=== PATIENT | male | born 1975 | race Caucasian/White ===

== ENCOUNTER → 2024-02-09 14:47 | Outpatient (REF) | payer OTHER, SELFPAY | LOC: RCS 14:47 | PROVIDERS: ATTENDING PHYSICIAN Internal Medicine Cardiovascular Disease; FAMILY PHYSICIAN Family Medicine | DX: I10 Essential (primary) hypertension (principal); R93.1 Abnormal findings on diagnostic imaging of heart and coronary circulation; E78.2 Mixed hyperlipidemia | CPT/HCPCS: 93017 ==

== ENCOUNTER → 2024-10-04 06:54 | Outpatient (REF) | payer OTHER, SELFPAY | LOC: EMG 06:54 | PROVIDERS: ATTENDING PHYSICIAN Orthopaedic Surgery Hand Surgery; FAMILY PHYSICIAN Family Medicine | DX: M25.521 Pain in right elbow (principal); R20.0 Anesthesia of skin | CPT/HCPCS: 95886; 95910 ==

== ENCOUNTER 2024-11-07 10:15 | Emergency (ER) | payer OTHER, SELFPAY ==
[2024-11-07 10:31] VITALS: BP 137/88
--- NOTE | 2024-11-07 11:23 | ED.GENMED ---
History of Present Illness
General
Chief Complaint: Fall
Source: patient
Time Seen by Provider: 11/07/24 10:45
History of Present Illness
History of Present Illness:
49-year-old male with past medical history of hyperlipidemia presenting to the emergency department for evaluation after he fell off his sofa last night landing face first onto the ground noting epistaxis, abrasion to the nasal bridge and some mild
bruising around the nasal bone this morning. Patient states that he still feels a small taste of blood in the back of his throat. Denies any reported loss of consciousness, vomiting, visual changes. Reports this injury occurred around 11 PM to
midnight last night. Patient does endorse alcohol use last night. Denies any use of anticoagulants. Tetanus is up-to-date. No other injury sustained.
Past History
Past History
ED Past Medical History: HTN and Hypercholesterolemia
ED Past Surgical History: Tonsilectomy
Social History
Tobacco: Non-smoker
Alcohol: Occasional
Drug: None
Personal:
Living: with family
Employment: Employed
Review of Systems
Review of Systems
All Other Systems: ROS reviewed and negative except as documented in HPI and ROS
Phy Exam
Physical Exam
Physical Exam:
GENERAL: Alert , in no apparent distress
EYE: clear conjunctiva b/l
HEAD: no scalp trauma
ENT: Nasal abrasion/contusion to the nasal bridge. Mild surrounding ecchymosis. No active bleeding. There is dried blood in both naris but no septal hematoma. No blood within the posterior oropharynx. o/p clr, mmm. No dental fractures.
Tolerating secretions. TMs clear bilateral
NEUROLOGICAL: Alert and oriented
SKIN: Warm and dry, skin intact.
MUSCULOSKELETAL: No edema, well perfused.
PSYCH: Normal and appropriate interaction.
Scores
Heart Failure Risk
Heart Failure Risk Score: Not Applicable
Heart Score for Chest Pain Patients
STEMI patient?: Not applicable
Withdrawal Assessment of Alcohol
Withdrawal Assessment Completed?: Not applicable
Course
Vital Signs
Initial and Last Documented VS:
Initial Vital Signs
Temp Pulse Resp BP Pulse Ox
98.0 F 98 16 137/88 98
11/07/24 10:31 11/07/24 10:31 11/07/24 10:31 11/07/24 10:31 11/07/24 10:31
Last Documented Vital Signs
Temp Pulse Resp BP Pulse Ox
98.0 F 98 16 137/88 98
11/07/24 10:31 11/07/24 10:31 11/07/24 10:31 11/07/24 10:31 11/07/24 10:31
MDM/Problems Addressed
Differential Diagnosis Includes:
Nasal contusion, nasal fracture, contusions, concussion, intracranial bleeding, calvarial fracture
MDM/Problems Addressed:
49-year-old male presenting to the ER for evaluation following an accidental slip and fall off his couch last night resulting in minor facial injury. Abrasion on the nasal bridge is not amenable to suturing. There is no evidence for septal
hematoma. Discussed risk versus benefit of CT imaging versus x-ray versus no imaging and ultimately patient opted for no imaging. We discussed the possibility that there could be a nasal bone fracture as well as treatment/management of this.
Patient's tetanus vaccine is up-to-date. Recommended keeping ice over the affected area, Motrin/Tylenol as needed for pain. Patient is otherwise stable for discharge home
*Pulse Oximetry
Patient hypoxic: no
*Critical Care Note
Total Time (30-74mins, 75-104mins- exclusive of procedures): Not Applicable
Data Reviewed
Further Testing Considered But Not Given:
Discussed CT versus x-ray imaging but patient ultimately declined any imaging
ED Attending Note
-
Portions of this chart may have been created with voice recognition software.� Occasional wrong word or��sound alike� substitutions may have occurred due to the inherent limitations of voice recognition software.
Discharge Plan
Departure
Patient Disposition: Home (Routine Discharge)
Date of Disposition: 11/07/24
Time of Disposition: 11:23
Patient with high blood pressure during this ER visit?: No
Discharge Problem:
Accidental fall, Abrasion of nose
Instructions: Wound Care (DC)
Referrals:
Lisandro Howard DO [Family Provider] -
Interventions
Interventions:
*Risk Screen - Suicide Last Done: 11/07/24 10:31
*General Assessment Last Done: 11/07/24 11:26
*Neglect/Abuse Screening Last Done: 11/07/24 10:31
ED- Fall Risk Assessment Last Done: 11/07/24 11:26
*ED COVID-19 Vaccine History Last Done: 11/07/24 11:26
*Nursing Disposition Last Done: 11/07/24 11:26
ED-Musculoskeletal Assessment Last Done: 11/07/24 11:26
ED- Neurological Assessment Last Done: 11/07/24 11:26
ED-Skin Assessment Last Done: 11/07/24 11:26
Discharge Date and Time
Discharge Date/Time: 11/07/24 11:27
Print Language: FRENCH
== END 2024-11-07 11:27 | disposition home or self-care (01) ==
LOC: EMR 10:15
PROVIDERS: EMERGENCY PHYSICIAN Student in an Organized Health Care Education/Training Program; FAMILY PHYSICIAN Family Medicine
DX: S00.31XA Abrasion of nose, initial encounter (principal); W08.XXXA Fall from other furniture, initial encounter; E78.00 Pure hypercholesterolemia, unspecified
CPT/HCPCS: 99282